=== PATIENT | female | born 1995 | race Two or more races ===

== ENCOUNTER 2020-07-30 09:35 | Outpatient (CLI) | payer OTHER | END 2020-07-30 09:48 | disposition home or self-care (01) | LOC: SONOGRAMA 09:35 | DX: N39.9 Disorder of urinary system, unspecified (principal) ==

== ENCOUNTER 2020-12-15 07:48 | Outpatient (CLI) | payer OTHER | END 2020-12-15 07:49 | disposition home or self-care (01) | LOC: NUCLEAR 07:48 | PROVIDERS: ATTEND Specialist | DX: M25.561 Pain in right knee (principal); M25.562 Pain in left knee | CPT/HCPCS: 78315; A9503 ==

== ENCOUNTER 2022-12-01 07:24 | Emergency (ER) | payer OTHER ==
[~2022-12-01] VITALS: Ht 165.1 cm; Wt 79.4 kg
[2022-12-01 09:44] LABS: URINE APPEARANCE Clear; URINE BILIRRUBIN Negative (NEGATIVE); URINE BLOOD Negative; URINE COLOR Yellow; URINE GLUCOSE Negative (NEGATIVE); URINE LEUKOCYTE Small; URINE NITRATE Negative; URINE PROTEIN Negative (NEGATIVE); URINE UROBILINOGEN 0.2 E.U./dl
[2022-12-01 09:45] LABS: URINE BACTERIA 449.7 uL (0.0-1933); URINE EPITHELIAL CELLS 9.1 uL (0.0-38.8); URINE WBC 27.1 uL (0.0-23.2)
[2022-12-01 09:47] LABS: HEMATOCRIT 41.2 % (36.0-45.00); HEMOGLOBIN 14.2 g/dL (12.0-15.00); MEAN CELL VOLUME 86.4 fL (80.00-100.00); MEAN CORPUSCULAR HEMOGLOBIN 29.7 pg (27.00-32.0); MEAN CORPUSCULAR HGB CONC 34.4 g/dl (32.0-36.0); PLATELET COUNT 323 K/uL (150-450); RED BLOOD COUNT 4.77 M/uL (4.00-6.00)
[2022-12-01 09:49] LABS: URINE RBC 1.7 uL (0.0-20.8)
[2022-12-01 10:36] LABS: CALCIUM 9.1 mg/dL (8.5-10.1); CREATININE SERUM 0.83 mg/dL (0.55-1.02); GFR 81.86; POTASSIUM 3.72 mEq/L (3.5-5.1)
== END 2022-12-01 11:45 | disposition home or self-care (01) ==
LOC: ER 07:24
PROVIDERS: General Practice
DX: N39.0 Urinary tract infection, site not specified (principal); Z88.5 Allergy status to narcotic agent

== ENCOUNTER 2022-12-03 20:58 | Emergency (ER) | payer OTHER ==
[~2022-12-03] VITALS: Ht 165.1 cm; Wt 79.4 kg
[2022-12-03 22:39] LABS: HEMATOCRIT 41.4 % (36.0-45.00); HEMOGLOBIN 14.1 g/dL (12.0-15.00); MEAN CELL VOLUME 86.6 fL (80.00-100.00); MEAN CORPUSCULAR HEMOGLOBIN 29.5 pg (27.00-32.0); PLATELET COUNT 298 K/uL (150-450); RED BLOOD COUNT 4.78 M/uL (4.00-6.00); RED CELL DISTRIBUTION WIDTH 13.2 % (11.5-14.5)
[2022-12-03 23:04] LABS: ALBUMIN 3.9 gm/dL (3.4-5.0); ALKALINE PHOSPHATASE 94 U/L (50-136); ALT/SGPT 102 U/L (12-78); AMYLASE 54 U/L (25-115); ANION GAP 12 (10.0-20.0); AST/SGOT 34 U/L (15-37); BILIRUBIN TOTAL 0.43 mg/dL (0.3-1.2); BLOOD UREA NITROGEN 10 mg/dL (7-18); BUN CREA RATIO 10 (7.0-25.0); CALCIUM 9.1 mg/dL (8.5-10.1); CARBON DIOXIDE 22 mEq/L (21-32); CHLORIDE 104 mmol/L (98-107); CREATININE SERUM 1.03 mg/dL (0.55-1.02); GLOBULINA 4.2 G/DL (2.4-3.5); GLUCOSE FASTING 111 mg/dL (65-100); LIPASE 20 U/L (13-75); OSMOLALITY SERUM 270 MOSM/KG (275-295); POTASSIUM 3.39 mEq/L (3.5-5.1); SODIUM 135 mmol/L (136-145); TOTAL PROTEIN 8.1 gm/dL (6.4-8.2)
[2022-12-03 23:06] LABS: HCG QUANTITATIVE < 1 mUI/mL (1-3)
[2022-12-04 01:02] LABS: PH,URINE 6.5 (5.0-8.0); URINE APPEARANCE Clear; URINE BILIRRUBIN Negative (NEGATIVE); URINE BLOOD Negative; URINE COLOR Dark Yellow; URINE GLUCOSE Negative (NEGATIVE); URINE LEUKOCYTE Trace; URINE NITRATE Positive; URINE PROTEIN Negative (NEGATIVE)
[2022-12-04 01:06] LABS: URINE BACTERIA 453.5 uL (0.0-1933); URINE EPITHELIAL CELLS 5.1 uL (0.0-38.8); URINE WBC 30.4 uL (0.0-23.2)
[2022-12-04 01:27] LABS: URINE RBC 0.1 uL (0.0-20.8)
[2022-12-04] MEDS ORDERED: CIPRO500 MG PO (02:12)
[2022-12-04] MEDS ORDERED: POLY119PG PO (02:12)
== END 2022-12-04 02:18 ==
LOC: ER 20:58
PROVIDERS: General Practice
DX: K59.00 Constipation, unspecified (principal); N39.0 Urinary tract infection, site not specified; Z88.5 Allergy status to narcotic agent

== ENCOUNTER 2023-01-08 09:16 | Outpatient (CLI) | payer OTHER ==
[~2023-01-08 09:16] MED LIST: CIPRO500 MG PO; POLY119PG PO
== END 2023-01-08 09:22 | disposition home or self-care (01) ==
LOC: SONOGRAMA 09:16
PROVIDERS: ATTEND Obstetrics & Gynecology
DX: R10.2 Pelvic and perineal pain (principal); Z88.5 Allergy status to narcotic agent

== ENCOUNTER 2023-12-10 08:40 | Emergency (ER) | payer OTHER ==
[~2023-12-10] VITALS: Ht 165.1 cm; Wt 68.0 kg
[2023-12-10] MEDS ORDERED: BUDESONIDE EC3 MG PO (08:53)
[2023-12-10 10:05] LABS: HEMOGLOBIN 13.7 g/dL (12.0-15.00); MEAN CELL VOLUME 91.6 fL (80.00-100.00); MEAN CORPUSCULAR HEMOGLOBIN 30.6 pg (27.00-32.0); MEAN CORPUSCULAR HGB CONC 33.5 g/dl (32.0-36.0); PLATELET COUNT 269 K/uL (150-450); RED BLOOD COUNT 4.47 M/uL (4.00-6.00); RED CELL DISTRIBUTION WIDTH 13.3 % (11.5-14.5)
[2023-12-10 10:55] LABS: URINE APPEARANCE Clear; URINE BILIRRUBIN Negative (NEGATIVE); URINE BLOOD Negative; URINE COLOR Yellow; URINE GLUCOSE Negative (NEGATIVE); URINE KETONE Negative (NEGATIVE); URINE LEUKOCYTE Trace; URINE NITRATE Negative; URINE PROTEIN Negative (NEGATIVE); URINE UROBILINOGEN 0.2 E.U./dl
[2023-12-10 10:56] LABS: URINE EPITHELIAL CELLS 10.9 uL (0.0-38.8); URINE WBC 26.1 uL (0.0-23.2)
[2023-12-10 11:17] LABS: CALCIUM 9.8 mg/dL (8.5-10.1); CREATININE SERUM 0.71 mg/dL (0.55-1.02); GFR 97.32; POTASSIUM 4.26 mEq/L (3.5-5.1)
[2023-12-10 11:52] LABS: URINE RBC 0.4 uL (0.0-20.8)
== END 2023-12-10 13:33 | disposition home or self-care (01) ==
LOC: ER 08:42
PROVIDERS: Emergency Medicine
DX: O20.8 Other hemorrhage in early pregnancy (principal); O23.31 Infections of other parts of urinary tract in pregnancy, first trimester; N39.0 Urinary tract infection, site not specified

== ENCOUNTER 2024-01-18 10:12 | Outpatient (CLI) | payer OTHER ==
[~2024-01-18 10:12] MED LIST changes: +BUDESONIDE EC3 MG PO
== END 2024-01-18 10:14 | disposition home or self-care (01) ==
LOC: PRENATAL 10:12
PROVIDERS: ATTEND Obstetrics & Gynecology Maternal & Fetal Medicine
DX: O36.80X0 Pregnancy with inconclusive fetal viability, not applicable or unspecified (principal); Z36.82 Encounter for antenatal screening for nuchal translucency; Z14.8 Genetic carrier of other disease; Z3A.12 12 weeks gestation of pregnancy

== ENCOUNTER 2024-02-05 13:09 | Emergency (ER) | payer OTHER ==
[~2024-02-05] VITALS: Ht 167.6 cm; Wt 72.6 kg
[2024-02-05] MEDS ORDERED: 0.9 % SODIUM CHLORIDE 1,000 ML IV STA (14:17)
[2024-02-05 14:43] LABS: HEMATOCRIT 37.8 % (36.0-45.00); HEMOGLOBIN 12.7 g/dL (12.0-15.00); MEAN CELL VOLUME 91.1 fL (80.00-100.00); MEAN CORPUSCULAR HEMOGLOBIN 30.7 pg (27.00-32.0); MEAN CORPUSCULAR HGB CONC 33.7 g/dl (32.0-36.0); PLATELET COUNT 242 K/uL (150-450); RED BLOOD COUNT 4.15 M/uL (4.00-6.00); RED CELL DISTRIBUTION WIDTH 13.3 % (11.5-14.5)
[2024-02-05 15:36] LABS: ALBUMIN 3.4 gm/dL (3.4-5.0); ALKALINE PHOSPHATASE 61 U/L (50-136); ALT/SGPT 19 U/L (12-78); ANION GAP 10 (10.0-20.0); AST/SGOT 12 U/L (15-37); BILIRUBIN TOTAL 0.24 mg/dL (0.3-1.2); BILIRUBIN,CONJUGATED < 0.10 mg/dL (0.0-0.2); BILIRUBIN,UNCONJUGATED 0.14 mg/dL (0.0-0.6); BLOOD UREA NITROGEN 10 mg/dL (7-18); BUN CREA RATIO 17 (7.0-25.0); CALCIUM 8.9 mg/dL (8.5-10.1); CARBON DIOXIDE 27 mEq/L (21-32); CHLORIDE 105 mmol/L (98-107); GFR 118.19; GLUCOSE FASTING 73 mg/dL (65-100); OSMOLALITY SERUM 273 MOSM/KG (275-295); POTASSIUM 3.88 mEq/L (3.5-5.1); SODIUM 138 mmol/L (136-145)
[2024-02-05 15:40] LABS: HCG QUANTITATIVE 29657 mUI/mL (1-3)
[2024-02-05 15:50] LABS: PH,URINE 7.5 (5.0-8.0); URINE APPEARANCE Clear; URINE BILIRRUBIN Negative (NEGATIVE); URINE BLOOD Negative; URINE COLOR Yellow; URINE GLUCOSE Negative (NEGATIVE); URINE KETONE Negative (NEGATIVE); URINE LEUKOCYTE Trace; URINE NITRATE Negative; URINE PROTEIN Negative (NEGATIVE); URINE UROBILINOGEN 0.2 E.U./dl
[2024-02-05 15:53] LABS: URINE BACTERIA 103.9 uL (0.0-1933); URINE EPITHELIAL CELLS 9.7 uL (0.0-38.8); URINE RBC 4.8 uL (0.0-20.8); URINE WBC 2.6 uL (0.0-23.2)
[2024-02-05] MEDS ORDERED: FAMOTIDINE/PF 20 MG/2 ML VIAL IV PUSH ONE (17:30)
[2024-02-05] MEDS ORDERED: ONDANSETRON 4 MG TAB.RAPDIS PO ONE (17:30)
== END 2024-02-05 17:51 | disposition home or self-care (01) ==
LOC: ER 13:12
PROVIDERS: General Practice
DX: O99.612 Diseases of the digestive system complicating pregnancy, second trimester (principal); K31.89 Other diseases of stomach and duodenum; K29.70 Gastritis, unspecified, without bleeding; K52.9 Noninfective gastroenteritis and colitis, unspecified; K50.90 Crohn's disease, unspecified, without complications; Z3A.14 14 weeks gestation of pregnancy; Z88.8 Allergy status to other drugs, medicaments and biological substances

== ENCOUNTER 2024-03-12 07:50 | Outpatient (CLI) | payer OTHER | END 2024-03-12 07:51 | disposition home or self-care (01) | LOC: PRENATAL 07:50 | PROVIDERS: ATTEND Obstetrics & Gynecology Maternal & Fetal Medicine | DX: O44.00 Complete placenta previa NOS or without hemorrhage, unspecified trimester (principal); Z3A.20 20 weeks gestation of pregnancy ==

== ENCOUNTER 2024-05-07 10:38 | Outpatient (CLI) | payer OTHER | END 2024-05-07 10:39 | disposition home or self-care (01) | LOC: PRENATAL 10:38 | PROVIDERS: ATTEND Obstetrics & Gynecology Maternal & Fetal Medicine | DX: O26.849 Uterine size-date discrepancy, unspecified trimester (principal); O36.8199 Decreased fetal movements, unspecified trimester, other fetus; Z3A.28 28 weeks gestation of pregnancy ==

== ENCOUNTER → 2024-06-08 | Emergency (ER) | payer OTHER ==
[~2024-06-08] VITALS: Ht 165.1 cm; Wt 83.5 kg
[2024-06-08 12:01] LABS: HEMATOCRIT 36.9 % (36.0-45.00); HEMOGLOBIN 12.5 g/dL (12.0-15.00); MEAN CELL VOLUME 92.2 fL (80.00-100.00); MEAN CORPUSCULAR HEMOGLOBIN 31.3 pg (27.00-32.0); MEAN CORPUSCULAR HGB CONC 33.9 g/dl (32.0-36.0); PLATELET COUNT 241 K/uL (150-450); RED CELL DISTRIBUTION WIDTH 13.2 % (11.5-14.5)
[2024-06-08 12:14] LABS: COVID-19 AG NEGATIVE (NEGATIVE); INFLUENZA A AG NEGATIVE (NEGATIVE)
== END | disposition home or self-care (01) ==
LOC: ER 08:24
DX: O26.893 Other specified pregnancy related conditions, third trimester (principal); J03.90 Acute tonsillitis, unspecified; Z3A.32 32 weeks gestation of pregnancy; Z88.8 Allergy status to other drugs, medicaments and biological substances; Z20.822 Contact with and (suspected) exposure to COVID-19

== ENCOUNTER 2024-06-18 14:18 | Outpatient (CLI) | payer OTHER | END 2024-06-18 14:20 | disposition home or self-care (01) | LOC: PRENATAL 14:18 | PROVIDERS: ATTEND Obstetrics & Gynecology Maternal & Fetal Medicine | DX: O26.849 Uterine size-date discrepancy, unspecified trimester (principal); O36.8199 Decreased fetal movements, unspecified trimester, other fetus; Z3A.35 35 weeks gestation of pregnancy ==

== ENCOUNTER 2024-07-31 00:13 | Inpatient (IN) | payer OTHER ==
[2024-07-30 23:15] VITALS: BP 134/74
[~2024-07-31] VITALS: Ht 165.1 cm; Wt 90.3 kg
[2024-07-31] VITALS (9 sets, daily range): BP systolic 101–134; BP diastolic 53–74
[2024-07-31] MEDS ORDERED: RINGERS SOLUTION,LACTATED 1,000 ML IV SCH (00:30)
[2024-07-31] MEDS ORDERED: PRENATA CHEWAB1 EACH PO (00:31)
[2024-07-31 00:44] LABS: PH,URINE 5.5 (5.0-8.0); URINE APPEARANCE Clear; URINE BILIRRUBIN Negative (NEGATIVE); URINE BLOOD Negative; URINE COLOR Yellow; URINE GLUCOSE Negative (NEGATIVE); URINE KETONE Negative (NEGATIVE); URINE LEUKOCYTE Moderate; URINE NITRATE Negative; URINE PROTEIN Negative (NEGATIVE); URINE UROBILINOGEN 0.2 E.U./dl
[2024-07-31 00:47] LABS: URINE EPITHELIAL CELLS 30.7 uL (0.0-38.8); URINE WBC 252.5 uL (0.0-23.2)
[2024-07-31 00:51] LABS: BASO % 0.2 % (0.1-1.2); EOS # 0.06 (0.04-0.54); EOS % 0.3 % (0.7-7.0); HEMATOCRIT 37.4 % (34.1-44.9); LYMPH # 2.32 (1.18-3.74); MEAN CORPUSCULAR HEMOGLOBIN 31.5 pg (25.6-32.2); MONO # 1.56 (0.24-0.82); MONO % 8.8 % (4.7-12.5); NEUT # 13.74 (1.56-6.13); NEUT % 77.3 % (34.0-71.1); PLATELET COUNT 204 K/uL (163-369); RED BLOOD COUNT 4.13 M/uL (3.93-5.22); RED CELL DISTRIBUTION WIDTH 13.1 % (11.6-14.4)
[2024-07-31 01:06] LABS: URINE CAST 0.14 uL (0.0-1.40); URINE RBC 1.3 uL (0.0-20.8)
[2024-07-31 01:27] LABS: INR < 0.93; PROTHROMBIN TIME 9.9 SECONDS (9.0-11.5)
[2024-07-31] MEDS ORDERED: MORPHINE SULFATE 4 MG/ML VIAL IV ONE ×2 (04:45→07:45)
[2024-07-31] MEDS ORDERED: METHYLPREDNISOLONE SOD SUCC 40 MG VIAL IV SCH (09:00)
[2024-07-31] MEDS ORDERED: OXYTOCIN 20 UNITS/1000ML RL PIGGYBAG IV ONE ×2 (12:45→17:28)
[2024-07-31] MEDS ORDERED: CHLORHEXIDINE GLUCONATE 120 ML BOTTLE TOP ONE ×2 (12:45→17:00)
[2024-07-31] MEDS ORDERED: ERYTHROMYCIN BASE OPHT 1GM EACH TUBE OP ONE ×2 (12:45→17:00)
[2024-07-31] MEDS ORDERED: LIDOCAINE HCL 1% 10ML VIAL ONE ×2 (12:45→15:41)
[2024-07-31] MEDS ORDERED: MORPHINE SULFATE 4 MG/ML CARTRIDGE IV ONE (13:15)
[2024-07-31] MEDS ORDERED: IBUprofen 400 MG TABLET PO PRN (16:30)
[2024-07-31] MEDS ORDERED: LIDOCAINE HCL 1% 20 ML VIAL IJ ONE (17:00)
[2024-07-31] MEDS ORDERED: OXYTOCIN 1,000 ML IV SCH (17:00)
[2024-08-01 00:39] VITALS: BP 107/67
[2024-08-01 07:12] LABS: BASO % 0.2 % (0.1-1.2); HEMATOCRIT 32.3 % (34.1-44.9); LYMPH # 1.56 (1.18-3.74); LYMPH % 6.4 % (19.3-53.1); MEAN CORPUSCULAR HEMOGLOBIN 31.9 pg (25.6-32.2); MONO # 1.16 (0.24-0.82); MONO % 4.7 % (4.7-12.5); NEUT # 21.63 (1.56-6.13); NEUT % 88.1 % (34.0-71.1); PLATELET COUNT 198 K/uL (163-369); RED BLOOD COUNT 3.48 M/uL (3.93-5.22); RED CELL DISTRIBUTION WIDTH 13.3 % (11.6-14.4)
[2024-08-01 07:22] LABS: HEMOGLOBIN 11.1 g/dL (11.2-15.7)
[2024-08-01 08:00] VITALS: BP 111/69
[2024-08-01] MEDS ORDERED: PNV,CALCIUM 72/IRON/FOLIC ACID 1 TAB TABLET PO SCH (09:00)
[2024-08-01 16:46] VITALS: BP 103/58
[2024-08-01 20:50] VITALS: BP 107/60
[2024-08-01 23:47] VITALS: BP 107/71
[2024-08-02 08:39] VITALS: BP 106/70
== END 2024-08-02 11:41 | disposition home or self-care (01) | DRG 807 ==
LOC: OBS/DEL 00:13 → LDR 07:23 → OB/GYN 22:37
PROVIDERS: Obstetrics & Gynecology; ADMIT Obstetrics & Gynecology; ATTEND Obstetrics & Gynecology
PROC: 0KQM0ZZ Repair Perineum Muscle, Open Approach (ICD-10-PCS; 2024-07-31)
PROC: 4A1HXCZ Monitoring of Products of Conception, Cardiac Rate, External Approach (ICD-10-PCS; 2024-07-31)
PROC: 10E0XZZ Delivery of Products of Conception, External Approach (ICD-10-PCS; principal; 2024-07-31 15:30)
DX: O70.1 Second degree perineal laceration during delivery (principal); Z37.0 Single live birth; Z3A.40 40 weeks gestation of pregnancy